=== PATIENT | male | born 1970 | race Caucasian/White ===

== ENCOUNTER 2017-12-18 18:39 | Emergency (ER) | payer OTHER ==
[~2017-12-18] VITALS: Ht 175.3 cm; Wt 78.0 kg
[2017-12-18 18:49] VITALS: BP 126/76; PULSE 81; RESP 15; TEMP 98.4; O2SAT 98
[2017-12-18] MEDS ORDERED: VIST25CA PO (18:50)
[2017-12-18] MEDS ORDERED: CELE10TA PO (18:50)
[2017-12-18] MEDS ORDERED: REME15TA PO (18:50)
[2017-12-18] MEDS ORDERED: [UNRECOGNIZED DRUG - CODE] (18:50)
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
[2017-12-18 20:02] LABS: AUTOMATED NEUTROPHIL # 3.5 TH/MM3 (1.8-7.7); BASOPHIL % 0.6 % (0.0-2.0); EOSINOPHIL % 0.4 % (0.0-4.0); HEMATOCRIT 46.7 % (39.0-51.0); HEMOGLOBIN 15.6 GM/DL (13.0-17.0); LYMPH % 28.8 % (9.0-44.0); LYMPHOCYTE # 1.6 TH/MM3 (1.0-4.8); MEAN CELL VOLUME 91.8 FL (80.0-100.0); MEAN CORPUSCULAR HEMOGLOBIN 30.6 PG (27.0-34.0); MEAN CORPUSCULAR HGB CONC 33.4 % (32.0-36.0); MEAN PLATELET VOLUME 8.6 FL (7.0-11.0); MONO % 8.2 % (0.0-8.0); MONOCYTE # 0.5 TH/MM3 (0-0.9); PLATELET COUNT 248 TH/MM3 (150-450); RED BLOOD COUNT 5.09 MIL/MM3 (4.50-5.90); RED CELL DISTRIBUTION WIDTH 13.6 % (11.6-17.2); WHITE BLOOD COUNT 5.7 TH/MM3 (4.0-11.0)
[2017-12-18 20:42] LABS: ALT (GPT) 261 U/L (12-78)
[2017-12-18 20:47] LABS: ALBUMIN 3.6 GM/DL (3.4-5.0); AST (GOT) 97 U/L (15-37); BICARBONATE 28.1 MEQ/L (21.0-32.0); BLOOD UREA NITROGEN 11 MG/DL (7-18); CHLORIDE 103 MEQ/L (98-107); CREATININE 1.09 MG/DL (0.60-1.30); GLOMERULAR FILTRATION RATE 72 ML/MIN (>89); GLUCOSE,RANDOM 145 MG/DL (74-106); SODIUM (NA) 143 MEQ/L (136-145)
[2017-12-18 20:52] LABS: ALKALINE PHOSPHATASE 99 U/L (45-117); TOTAL BILIRUBIN ADULT 0.3 MG/DL (0.2-1.0)
[2017-12-18 20:54] LABS: ACETAMINOPHEN LESS THAN 2.0 MCG/ML (10.0-30.0)
--- NOTE | 2017-12-19 13:13 | PD ---
Physical Exam Date Seen by Provider: Dec 19, 2017 Narrative I was asked to see the patient in the J pod to lift his Logan Act. The patient has a history of personality disorder. He also has a history of substance abuse. The patient reports that he is anxious to get to a job in [place]. He is not currently suicidal or homicidal. His Logan Act is lifted and he is discharged. Data Data Last Documented VS Vital Signs Date Time Temp Pulse Resp B/P (MAP) Pulse Ox O2 Delivery O2 Flow Rate FiO2 12/18/17 18:49 98.4 81 15 126/76 (93) 98 Orders Orders Complete Blood Count With Diff (12/18/17 19:01) Comprehensive Metabolic Panel (12/18/17 19:01) Thyroid Stimulating Hormone (12/18/17 19:01) Psych Screen (12/18/17 19:01) Drug Screen, Random Urine (12/18/17 19:01) Alcohol (Ethanol) (12/18/17 19:01) Salicylates (Aspirin) (12/18/17 19:01) Tylenol (Acetaminophen) (12/18/17 19:01) Diet Regular Basic (12/19/17 Breakfast) Diet Regular Basic (12/19/17 Lunch) Ed Discharge Order (12/19/17 13:11) Labs Laboratory Tests Test 12/18/17 19:00 White Blood Count 5.7 TH/MM3 Red Blood Count 5.09 MIL/MM3 Hemoglobin 15.6 GM/DL Hematocrit 46.7 % Mean Corpuscular Volume 91.8 FL Mean Corpuscular Hemoglobin 30.6 PG Mean Corpuscular Hemoglobin Concent 33.4 % Red Cell Distribution Width 13.6 % Platelet Count 248 TH/MM3 Mean Platelet Volume 8.6 FL Neutrophils (%) (Auto) 62.0 % Lymphocytes (%) (Auto) 28.8 % Monocytes (%) (Auto) 8.2 % Eosinophils (%) (Auto) 0.4 % Basophils (%) (Auto) 0.6 % Neutrophils # (Auto) 3.5 TH/MM3 Lymphocytes # (Auto) 1.6 TH/MM3 Monocytes # (Auto) 0.5 TH/MM3 Eosinophils # (Auto) 0.0 TH/MM3 Basophils # (Auto) 0.0 TH/MM3 CBC Comment DIFF FINAL Differential Comment Blood Urea Nitrogen 11 MG/DL Creatinine 1.09 MG/DL Random Glucose 145 MG/DL Total Protein 8.0 GM/DL Albumin 3.6 GM/DL Calcium Level 9.0 MG/DL Alkaline Phosphatase 99 U/L Aspartate Amino Transf (AST/SGOT) 97 U/L Alanine Aminotransferase (ALT/SGPT) 261 U/L Total Bilirubin 0.3 MG/DL Sodium Level 143 MEQ/L Potassium Level 3.7 MEQ/L Chloride Level 103 MEQ/L Carbon Dioxide Level 28.1 MEQ/L Anion Gap 12 MEQ/L Estimat Glomerular Filtration Rate 72 ML/MIN Thyroid Stimulating Hormone 3rd Gen 0.369 uIU/ML Salicylates Level 2.0 MG/DL Urine Opiates Screen NEG Acetaminophen Level LESS THAN 2.0 MCG/ML Urine Barbiturates Screen NEG Urine Amphetamines Screen NEG Urine Benzodiazepines Screen NEG Urine Cocaine Screen POS Urine Cannabinoids Screen NEG Ethyl Alcohol Level 64 MG/DL MDM Supervised Visit with STACEY: No Diagnosis Primary Impression: Medical clearance for psychiatric admission Additional Impression: Substance abuse Condition: Stable Jing Saleh MD Dec 19, 2017 13:13
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
== END 2017-12-19 15:57 | disposition home or self-care (01) ==
LOC: NEPD 18:39 → NEPJ 12-19 15:57
DX: F19.94 Other psychoactive substance use, unspecified with psychoactive substance-induced mood disorder (principal); F60.2 Antisocial personality disorder; I10 Essential (primary) hypertension; F41.8 Other specified anxiety disorders; F14.10 Cocaine abuse, uncomplicated; F39 Unspecified mood [affective] disorder; Y90.3 Blood alcohol level of 60-79 mg/100 ml; Z59.0 Homelessness
CPT/HCPCS: 80053; 80307; 84443; 85025; 99283